=== PATIENT | male | born 1990 | race Caucasian/White ===

== ENCOUNTER 2024-02-21 23:54 | Emergency (ER) | payer OTHER ==
[2024-02-22] VITALS: TEMP 97.8
[2024-02-22 00:25] LABS: Basophils # (A) 0.1 k/uL (0-0.2); Basophils % (A) 1 %; Eosinophils # (A) 0.3 k/uL (0-0.7); Eosinophils % (A) 3 %; HCT 44.2 % (39.0-53.0); HGB 15.9 gm/dL (13.0-17.5); Lymphocytes # (A) 4.1 k/uL (1.0-4.8); Lymphocytes % (A) 49 %; MCH 31.8 pg (25.0-35.0); MCHC 35.9 g/dL (31.0-37.0); MCV 88.5 fL (80.0-100.0); Mean Platelet Volume 7.3; Monocytes # (A) 0.4 k/uL (0-1.0); Monocytes % (A) 4 %; Neutrophils # (A) 3.4 k/uL (1.3-7.7); Neutrophils % (A) 40 %; Platelet Count 233 k/uL (150-450); WBC 8.5 k/uL (3.8-10.6)
--- NOTE | 2024-02-22 00:25 | ED ---
Chest Pain HPI - General Chief Complaint: Chest Pain Stated Complaint: Chest Pain Time Seen by Provider: 02/22/24 00:02 Source: patient, RN notes reviewed Mode of arrival: ambulatory Limitations: no limitations - History of Present Illness Initial Comments: This is a 33-year-old male who presents to the emergency department for chest pain and shortness of breath. States that starting 6 months ago he noticed he would occasionally get bouts of chest pain. However, these only lasted for a couple of seconds and then resolved. Over the last couple of days he noticed that the pain became much more constant and he has associated shortness of breath. Describes the pain as a left-sided pressure sensation. Denies any radiation of pain, nausea, or vomiting. Denies any personal or family history of cardiac issues. States that his blood pressure has been more elevated recently. Not currently on blood pressure medications. MD Complaint: chest pain - Related Data Home Medications Medication Instructions Recorded Confirmed Dextroamphetamine/Amphetamine 20 mg PO DAILY PRN 09/24/14 09/24/14 [Dextroamp-Amphetamin 20 mg Tab] Loratadine [Claritin] 10 mg PO DAILY PRN 09/24/14 09/24/14 Previous Rx's Medication Instructions Recorded Cephalexin [Keflex] 500 mg PO Q8HR #14 cap 09/24/14 Hydrocodone/Acetaminophen [Orwell 1 each PO Q4HR PRN #30 tab 09/24/14 5-325] Allergies Allergy/AdvReac Type Severity Reaction Status Date / Time No Known Allergies Allergy Verified 02/22/24 00:01 Review of Systems ROS Statement: Those systems with pertinent positive or pertinent negative responses have been documented in the HPI. ROS Other: All systems not noted in ROS Statement are negative. Past Medical History Past Medical History: No Reported History Additional Past Medical History / Comment(s): ALLERGIC rhinitis. History of Any Multi-Drug Resistant Organisms: None Reported Additional Past Surgical History / Comment(s): jaw surgery, tubes in ears when child Past Psychological History: No Psychological Hx Reported Smoking Status: Never smoker Past Alcohol Use History: Occasional Past Drug Use History: Marijuana - Past Family History Father Family Medical History: Hypertension Mother Family Medical History: No Reported History General Exam Limitations: no limitations General appearance: alert, in no apparent distress Head exam: Present: atraumatic, normocephalic, normal inspection Respiratory exam: Present: normal lung sounds bilaterally. Absent: respiratory distress, wheezes, rales, rhonchi, stridor Cardiovascular Exam: Present: regular rate, normal rhythm, normal heart sounds. Absent: systolic murmur, diastolic murmur, rubs, gallop, clicks Neurological exam: Present: alert, oriented X3, CN II-XII intact Psychiatric exam: Present: normal affect, normal mood Skin exam: Present: warm, dry, intact, normal color. Absent: rash Course Vital Signs 02/21/24 02/22/24 02/22/24 23:57 00:07 00:38 Temperature 97.8 F Pulse Rate 96 85 76 Respiratory 20 16 16 Rate Blood Pressure 167/95 162/95 117/91 O2 Sat by Pulse 100 100 95 Oximetry 02/22/24 02/22/24 01:10 01:40 Temperature Pulse Rate 67 55 L Respiratory 19 14 Rate Blood Pressure 123/73 124/85 O2 Sat by Pulse 95 96 Oximetry Chest Pain MDM - MDM This is a 33-year-old male who presents to the emergency department for chest pain. Was pt. sent in by a medical professional or institution? @ -No Did you speak to anyone other than the patient for history? @ -No Did you review nursing and triage notes? @ -Yes, and I agree, it is accurate with regards to the patient's symptoms. Were old charts reviewed? @ -No Differential Diagnosis? @ -Differential Chest Pain: Stable Angina, Unstable Angina, STEMI, NSTEMI Aortic Dissection, Pneumothorax, Musculoskeletal, Esophageal Spasm GERD, Cholecystitis, Pancreatitis, Zoster, this is not meant to be an all-inclusive list. EKG interpreted by me (3pts min.)? @ -EKG interpreted by me demonstrating the following: Sinus rhythm. Ventricular rate 85 bpm, SD interval 154 ms, QRS duration 101 ms, QTc 392 ms. X-rays interpreted by me (1pt min.)? @ -Chest x-ray obtained, my interpretation identifies no localized consolidations or infiltrates. CT interpreted by me (1pt min.)? @ -Not obtained U/S interpreted by me (1pt. min.)? @ -Not obtained What testing was considered but not performed? (CT, X-rays, U/S, labs)? Why? @ -None What meds were considered but not given? Why? @ -None Did you discuss the management of the patient with other professionals? @ -No Did you reconcile home meds? @ -No Was smoking cessation discussed for >3mins.? @ -No Was critical care preformed (if so, how long)? @ -No Were there social determinants of health that impacted care today? How? (Homelessness, low income, unemployed, alcoholism, drug addiction, transportation, low edu. Level, literacy, decrease access to med. care, correction, rehab)? @ -No Was there de-escalation of care discussed even if they declined? (Discuss DNR or withdrawal of care, Hospice)? @ -No What co-morbidities impacted this encounter? (DM, HTN, Smoking, COPD, CAD, Cancer, CVA, Hep., AIDS, mental health diagnosis, sleep apnea, morbid obesity)? @ -None Was patient admitted / discharged? @ -Discharged. Lab work unremarkable including a negative troponin and negative D-dimer. Chest x-ray reveals diminished lung volumes with bilateral perihilar streaky opacities. Subsegmental atelectasis is thought to be the most likely cause. They advised consideration of atypical infection, however this was felt to be much less likely. Patient has no URI symptoms such as coughing or congestion. He also has no leukocytosis or fevers to suggest signs of infection. Given the pressure-like sensation, he was given aspirin and nitroglycerin on arrival. He is unsure if this was effective, as his pain had essentially resolved by the time this was given. Patient has a low cardiac score of 0-1. Given that symptoms have resolved and he has a low cardiac score, advised that he can be discharged home and he is in agreement with this plan. Advised close follow-up with his primary care provider. Strict return parameters discussed. Case discussed with ED attending Dr. Lee. Return precautions reviewed in depth, the patient is instructed to return to the emergency department with any new, worsening, or concerning symptoms. Patient verbalized understanding. Undiagnosed new problem with uncertain prognosis? @ -None Drug Therapy requiring intensive monitoring for toxicity (Heparin, Nitro, Insulin, Cardizem)? @ -None Were any procedures done? @ -None Diagnosis/symptom? @ -Chest pain Acute, or Chronic, or Acute on Chronic? @ -Acute Uncomplicated (without systemic symptoms) or Complicated (systemic symptoms)? @ -Uncomplicated Side effects of treatment? @ -None Exacerbation, Progression, or Severe Exacerbation] @ -Not applicable Poses a threat to life or bodily function? @ -Unlikely Disposition Clinical Impression: Chest pain Disposition: HOME SELF-CARE Instructions (If sedation given, give patient instructions): Chest Pain (ED) Additional Instructions: Return to the emergency department with any new, worsening, or concerning symptoms. Follow up with your primary care provider in 1-2 days. Is patient prescribed a controlled substance at d/c from ED?: No Referrals: Kimber Gomez MD [Primary Care Provider] - 1-2 days Time of Disposition: 01:44
[2024-02-22] MEDS: NITROGLYCERIN SL TABS 0.4 MG TAB SUBLINGUAL STA (00:32)
[2024-02-22] MEDS: ASPIRIN 81 MG PO STA (00:33)
[2024-02-22] MEDS: SODIUM CHLORIDE 0.9% 1,000 ML IV STA (00:35)
--- NOTE | 2024-02-22 00:43 | XR ---
EXAM: XR Chest, 2 Views CLINICAL HISTORY: ITS.REASON XR Reason: Chest Pain TECHNIQUE: Frontal and lateral views of the chest. COMPARISON: No relevant prior studies available. FINDINGS: Lungs: Diminished lung volumes with bilateral perihilar streaky opacities. No lobar consolidation. No radiographic evidence for florid CHF. Pleural space: Unremarkable. No pneumothorax. No large pleural effusion. Heart: Unremarkable. No cardiomegaly. Mediastinum: Unremarkable. No significant abnormality identified. The trachea is midline. Bones/joints: Unremarkable. No acute fracture. IMPRESSION: Diminished lung volumes with bilateral perihilar streaky opacities. Favor subsegmental atelectasis given poor inspiratory effort. Atypical infection is considered much less likely. No lobar consolidation. No radiographic evidence for florid CHF. No pleural effusion or pneumothorax.
[2024-02-22 00:48] LABS: INR 0.9 (<1.2); Partial Thromboplastin Time 22.8 sec (22.0-30.0)
[2024-02-22] MEDS: NITROGLYCERIN OINT 1 INCH/GM PACKET TOPICAL STA (00:52)
[2024-02-22 01:11] LABS: ALT 53 U/L (4-49); African American GFR (CKD) >90 (>60 ml/min/1.73 sqM); Albumin 4.5 g/dL (3.5-5.0); Anion Gap 9 mmol/L; Blood Urea Nitrogen 18 mg/dL (9-20); Calcium 9.1 mg/dL (8.4-10.2); Carbon Dioxide 21 mmol/L (22-30); Chloride 108 mmol/L (98-107); Glucose 115 mg/dL (74-99); Non-African American GFR(CKD) >90 (>60 ml/min/1.73 sqM); Sodium 138 mmol/L (137-145); Total Bilirubin 0.6 mg/dL (0.2-1.3); Total Protein 7.9 g/dL (6.3-8.2)
[2024-02-22 01:13] LABS: AST 38 U/L (17-59); Alkaline Phosphatase 49 U/L (38-126); Magnesium 1.9 mg/dL (1.6-2.3); Potassium 3.9 mmol/L (3.5-5.1)
[2024-02-22 02:00] VITALS: BP 124/85; PULSE 55; RESP 14
== END 2024-02-22 02:01 | disposition home or self-care (01) ==
LOC: EC 23:54
DX: R07.9 Chest pain, unspecified (principal)
CPT/HCPCS: 36415; 71046; 80053; 83735; 84484; 85025; 85379; 85610; 85730; 93005; 96360; 99285